=== PATIENT | male | born 2000 | race African-American/Black ===

== ENCOUNTER 2018-01-15 09:19 | Emergency (ER) | payer MEDICAID ==
[~2018-01-15] VITALS: Ht 170.2 cm; Wt 59.0 kg
[2018-01-15] MEDS ORDERED: Acetaminophen 500mg (ES) tab ORAL ONE (10:30)
[2018-01-15 10:55] LABS: HEMATOCRIT 48.7 % (42.0-52.0); HEMOGLOBIN 16.9 G/DL (14.2-18.0); MEAN CORPUSCULAR VOLUME 92 FL (80-99); PLATELET COUNT 295 K/UL (150-450); RED CELL DISTRIBUTION WIDTH 11.4 % (11.6-14.8); WHITE BLOOD COUNT 12.9 K/UL (4.8-10.8)
[2018-01-15 11:09] LABS: ANION GAP 6 mmol/L (5-15); BLOOD UREA NITROGEN 11 mg/dL (7-18); CARBON DIOXIDE 29 MMOL/L (21-32); CHLORIDE 104 MMOL/L (98-107); POTASSIUM 3.8 MMOL/L (3.5-5.1); SODIUM 139 MMOL/L (136-145)
[2018-01-15 11:14] LABS: ALANINE AMINOTRANSFERASE 25 U/L (12-78); ALBUMIN/GLOBULIN RATIO 1.1 (1.0-2.7); ALKALINE PHOSPHATASE 67 U/L (46-116); ASPARTATE AMINO TRANSFERASE 20 U/L (15-37); BILIRUBIN,TOTAL 0.7 MG/DL (0.2-1.0)
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
[2018-01-15] MEDS ORDERED: IBUPROFEN600 MG ORAL (13:23)
[2018-01-15] MEDS ORDERED: CYCLOBENZAPRINE10 MG ORAL (13:23)
[2018-01-15 13:53] VITALS: BP 127/68
== END 2018-01-15 14:00 | disposition home or self-care (01) ==
LOC: EMR 10:11
DX: S30.1XXA Contusion of abdominal wall, initial encounter (principal); S30.811A Abrasion of abdominal wall, initial encounter; S13.4XXA Sprain of ligaments of cervical spine, initial encounter; V43.52XA Car driver injured in collision with other type car in traffic accident, initial encounter; Y92.89 Other specified places as the place of occurrence of the external cause
CPT/HCPCS: 36415; 71260; 74177; 80053; 85007; 85025; 99284; Q9967